=== PATIENT | female | born 1950 | race African-American/Black ===

== ENCOUNTER 2021-09-12 13:47 | Inpatient (IN) | payer MEDICARE, BC ==
[~2021-09-12] VITALS: Ht 170.2 cm; Wt 45.8 kg
[2021-09-12 14:44] LABS: BASOPHILS % (AUTO) 0.7 % (0.0-2.0); HEMATOCRIT 34 % (33-45); HEMOGLOBIN 11.4 g/dL (11.5-14.8); LYMPHOCYTES # (AUTO) 2.4 K/uL (0.8-4.8); LYMPHOCYTES % (AUTO) 33.3 % (20.0-44.0); MEAN CORPUSCULAR HGB CONC 34 g/dl (31.0-36.0); MEAN CORPUSCULAR VOLUME 85 fL (82-100); MONOCYTES # (AUTO) 1.6 K/uL (0.1-1.30); MONOCYTES % (AUTO) 22.2 % (2.0-12.0); NEUTROPHILS # (AUTO) 3.1 K/uL (1.8-8.9); NEUTROPHILS % (AUTO) 42.8 % (43.0-81.0); PLATELET COUNT (AUTO) 427 K/uL (150-450); RED BLOOD CELL COUNT(AUTO) 3.98 MIL/uL (4.0-5.2); WHITE BLOOD COUNT (AUTO) 7.2 K/uL (4.3-11.0)
[2021-09-12 14:51] LABS: CALCIUM, SERUM 9.1 mg/dL (8.5-10.1); CARBON DIOXIDE 30 mmol/L (21-32); CHLORIDE 99 mmol/L (98-107); CREATININE 0.4 mg/dL (0.6-1.3); GLUCOSE 100 mg/dL (74-106); POTASSIUM 4.2 mmol/L (3.5-5.1); SODIUM SERUM 137 mmol/L (136-145); UREA NITROGEN, BLOOD 6 mg/dL (7-18)
[2021-09-12] MEDS ORDERED: diphenhydrAMINE HCL 50 MG/ML VIAL IV ONE (15:30)
[2021-09-12] MEDS ORDERED: DIVA125C2 PO (15:41)
[2021-09-12] MEDS ORDERED: CEFD300C3 PO (16:07)
[2021-09-12] MEDS ORDERED: LEVE1000 PO (16:07)
[2021-09-12] MEDS ORDERED: AMLO5TAB4 PO (16:07)
[2021-09-12] MEDS ORDERED: ESCI10TA PO (16:07)
--- NOTE | 2021-09-12 16:58 | NUR ---
CALLED [facility]ORE[facility]. WILL CALL BACK.
--- NOTE | 2021-09-12 17:00 | NUR ---
(Dayna) at bedside. Updated with plan of care
[2021-09-12 17:19] LABS: BAND % (MANUAL) 2 % (0.0-5.0); EOSINOPHILS % (MANUAL) 5 % (0-4); LYMPHOCYTES % (MANUAL) 34 % (16-48); MONOCYTES % (MANUAL) 10 % (0-11.0); NEUTROPHILS % (MANUAL) 49 (42-76)
--- NOTE | 2021-09-12 17:32 | NUR ---
I/O cath done +cloudy UO- scant amt. Specimen sent to lab
--- NOTE | 2021-09-12 18:15 | NUR ---
NURSING SUP GAVE 307-1.
--- NOTE | 2021-09-12 18:29 | NUR ---
Nurse [employer] given to RNStefano Solano, No obvious distress?No acute changes. Status quo
[2021-09-12 19:11] VITALS: BP 127/63
--- NOTE | 2021-09-12 19:11 | NUR ---
ADMISSION 71 y/o female, able to response when asked but limited, appears weak and sleepy. Skin assessment done, left elbow skin tear with dry scab. Left sided weakness, CVA hx per records. Fall precaution maintained. at bedside, supportive with care.
[2021-09-12 20:01] LABS: BILIRUBIN,URINE SMALL (NEGATIVE); COLOR,URINE YELLOW (YELLOW); LEUKOCYTE ESTERASE ,URINE TRACE (NEGATIVE); NITRITE, URINE NEGATIVE (NEGATIVE); PROTEIN,URINE TRACE mg/dl (NEGATIVE); UGLUCOSE NEGATIVE (NEGATIVE); UROBILINOGEN,URINE 0.2 EU/dL (0.2)
[2021-09-12 22:14] LABS: BACTERIA,URINE RARE /HPF (None Seen)
[2021-09-12 22:15] LABS: WBC,URINE 0-2 /HPF (0-3); YEAST,URINE Few /HPF (None Seen)
--- NOTE | 2021-09-12 22:16 | NUR ---
LAB RESULT Urinalysis resulted, informed Dr. Loza with new order placed. Will start on IV Rocephin 1gm daily.
[2021-09-12] MEDS ORDERED: CEFTRIAXONE 1 G in IV D5W 50 ML IV ONE (22:30)
[2021-09-12] MEDS ORDERED: CEFTRIAXONE 1 G VIAL ONE (22:38)
[2021-09-13] VITALS: BP 121/65
[2021-09-13 04:00] VITALS: BP 107/63
--- NOTE | 2021-09-13 05:36 | NUR ---
END OF SHIFT REPORT Patient lethargic at times. On room air, tolerated well. Sinus rhythm in the Tele monitor HR 81. Started on IV abx. Afebrile during the shift. Urinary incontinence, no BM this this shift. Plan for Neurology consult, neuro checks. Fall precaution maintained, caregiver at bedside. Will endorse to oncoming RN.
--- NOTE | 2021-09-13 07:25 | NUR ---
RN OPENING NOTES RECEIVED PATIENT IN BED, RESTING. RESPONDS TO PHYSICAL AND VERBAL STIMULI, VERY LETHARGIC. CAREGIVER AT BEDSIDE. ON RA WITH NO S/SX OF RESP DISTRESS NOTED. NOT IN ACUTE DISTRESS AT THIS TIME. ON TELE MONITOR READING SR 78 AT THIS TIME. R HAND G#22 INTACT AND PATENT. PLAN TO HAVE NEURO CONSULT. SAFETY PRECAUTIONS IN PLACE. WILL CONTINUE PLAN OF CARE.
[2021-09-13] MEDS: ASPIRIN EC 81 MG TABLET.DR PO SCH (08:32)
[2021-09-13] MEDS: LEVETIRACETAM (250 MG) 250 MG TABLET PO SCH ×2 (08:32→17:35)
[2021-09-13] MEDS: ESCITALOPRAM OXALATE (10 MG) 10 MG TABLET PO SCH (08:32)
[2021-09-13] MEDS: AMLODIPINE BESYLATE 5 MG TABLET PO SCH (08:33)
--- NOTE | 2021-09-13 11:00 | NUR ---
RN NOTES PATIENT AWAKE AND MORE ALERT. A/O X1-2, ABLE TO CARRY ON CONVERSATION. AWAITING FOR NEURO EVAL. WILL CONTINUE TO MONITOR
[2021-09-13] MEDS: ACETAMINOPHEN 325 MG TABLET PO PRN (12:05)
--- NOTE | 2021-09-13 12:56 | NUR ---
SS Note: SS received consult for stroke. Pt. Is a 71-year-old female who demonstrates adequate insight to the reason for hospitalization. Per EMR, pt. was brought from home and was recent discharge from rehab facility. Pt. presents to the hospital stating that she was unable to wake up. Caregiver was at bedside. Pt. was oriented x3, alert, and cooperative. During interview, pt. was capable of following directions and appeared groomed. Pt.s speech was at a normal rate and pt.s mood was elevated. Pt. reported no hx of mental health, substance abuse, suicidal ideation, or homicidal ideation. Pt. denies auditory hallucinations, visual hallucinations, paranoia, or delusions. SW explored pt.s living situation. Per pt., she lives with her Raza [phone number: [phone], [address] [place] [address]], pt. was able to confirm address. Pt. stated that she has a hx of stroke and this time around she would not wake up, so her called the paramedics. Pt. was experiencing left-side numbness on her face. Pt. has 4 caregivers who rotates throughout the day to help with her ADLs. Pt. uses a walker and wheelchair to ambulate. Pt. also has a shower chair at home. Pt. was getting tearful and kept calling her . SW expressed emotional support. Plan: SW provided available resources and pt. accepted. Upon discharge, per pt., she wants to go back home with her [[id number] [place] [address]]. SW access pt. with the PHG9 and pt. scored a 0, pt. kept answering no to every question. There is no need for a psych consult. Resources Provided: Stroke Empowerment Packet. Educates pt.s on stroke.
--- NOTE | 2021-09-13 18:49 | NUR ---
RN CLOSING NOTES PATIENT IN BED, AWAKE, A/O X2-3. AND CAREGIVER AT BEDSIDE. REMAINS ON RA WITH NO S/SX OF RESP DISTRESS. NO COMPLAINT OF PAIN AT THIS TIME. ON TELE MONITOR READING SR [address] MORALEZ FOR NEURO EVAL. ALL ORDERS CARRIED OUT AND MEDICATIONS GIVEN. SAFETY PRECAUTIONS IN PLACE. WILL ENDORSE TO THE BELT KNIFE FEEDER NURSE FOR STUART
--- NOTE | 2021-09-13 19:35 | NUR ---
RN OPENING NOTE RECEIVED PATIENT IN BED, AWAKE, ALERT AND ORIENTED X2-3. CAREGIVER AT BEDSIDE. BREATHING IS EVEN AND NONLABORED. ON ROOM AIR, TOLERATING WELL. NO S/SX OF RESPIRATORY DISTRESS. DENIES ANY PAIN OR DISCOMFORT OF THIS TIME. ON TELEMETRY MONITORING WITH READING OF SINUS RHYTHM HR-76BPM. WITH IV ACCESS ON RIGHT FOREARM; PATENT, INTACT AND SALINE LOCKED. SAFETY AND FALL PRECAUTIONS IMPLEMENTED: HEAD OF BED ELEVATED, CALL LIGHT AND TABLE WITHIN EASY REACH, SIDE RAILS UP X2, BED IN LOWEST LOCKED POSITION. WILL CONTINUE TO MONITOR
[2021-09-13 20:00] VITALS: BP 104/61
[2021-09-13 20:22] VITALS: BP 104/61
[2021-09-13] MEDS ORDERED: CEFTRIAXONE 1 G in IV D5W 50 ML IV SCH (21:00)
--- NOTE | 2021-09-13 21:04 | NUR ---
RN NOTE PATIENT REQUESTED TO HAVE A SLEEPING PILL. ALFREDO BYRD NP NOTIFIED AND MADE AWARE; WITH ORDER MADE AND CARRIED OUT.
[2021-09-13] MEDS ORDERED: TRAZODONE 50 MG TABLET PO PRN (21:30)
--- NOTE | 2021-09-13 21:42 | NUR ---
RN NOTE PRN TRAZADONE 50 MG GIVEN PO ORDERED; MADE COMFORTABLE IN BED. WILL CONTINUE TO MONITOR
[2021-09-13 23:58] VITALS: BP_SYST 109; BP_SYST 162; BP_DIAS 63; BP_DIAS 74
[2021-09-14] VITALS (7 sets, daily range): BP systolic 105–131; BP diastolic 56–81
[2021-09-14 06:14] LABS: BASOPHILS % (AUTO) 0.5 % (0.0-2.0); EOSINOPHILS % (AUTO) 1.6 % (0.0-6.0); HEMATOCRIT 32 % (33-45); HEMOGLOBIN 10.9 g/dL (11.5-14.8); LYMPHOCYTES # (AUTO) 2.3 K/uL (0.8-4.8); MEAN CORPUSCULAR HGB CONC 34 g/dl (31.0-36.0); MEAN CORPUSCULAR VOLUME 86 fL (82-100); MONOCYTES # (AUTO) 1.3 K/uL (0.1-1.30); MONOCYTES % (AUTO) 21.4 % (2.0-12.0); NEUTROPHILS # (AUTO) 2.2 K/uL (1.8-8.9); NEUTROPHILS % (AUTO) 37.5 % (43.0-81.0); PLATELET COUNT (AUTO) 487 K/uL (150-450); RED BLOOD CELL COUNT(AUTO) 3.76 MIL/uL (4.0-5.2); WHITE BLOOD COUNT (AUTO) 5.9 K/uL (4.3-11.0)
[2021-09-14 06:37] LABS: CALCIUM, SERUM 9.1 mg/dL (8.5-10.1); CARBON DIOXIDE 28 mmol/L (21-32); CHLORIDE 100 mmol/L (98-107); CREATININE 0.4 mg/dL (0.6-1.3); GLUCOSE 100 mg/dL (74-106); MAGNESIUM 1.8 mg/dL (1.8-2.4); PHOSPHORUS 4.3 mg/dL (2.5-4.9); POTASSIUM 3.9 mmol/L (3.5-5.1); SODIUM SERUM 135 mmol/L (136-145); UREA NITROGEN, BLOOD 3 mg/dL (7-18)
--- NOTE | 2021-09-14 06:57 | NUR ---
RN CLOSING NOTE PATIENT RESTING IN BED, AWAKE, A/O X2-3. WITH CAREGIVER AT BEDSIDE. BREATHING EVENLY AND NONLABORED. STABLE ON ROOM AIR. IN NO ACUTE DISTRESS. NO COMPLAINTS OF PAIN OR DISCOMFORT AT THIS TIME. ON TELEMETRY MONITORING WITH READING OF SINUS RHYTHM HR-74BPM. WITH IV ACCESS ON RIGHT FOREARM; PATENT, INTACT AND SALINE LOCKED. SAFETY AND FALL PRECAUTIONS IN PLACE: HEAD OF BED ELEVATED, CALL LIGHT AND TABLE WITHIN EASY REACH, SIDE RAILS UP X2, BED IN LOWEST LOCKED POSITION. ENDORSED TO MORNING SHIFT FOR STUART.
--- NOTE | 2021-09-14 07:25 | NUR ---
MANAGER OF MARKETING OPENING NOTES RECEIVED PT IN BED ASLEEP, EASILY AROUSED. PT IS A/O X2, REORIENTED PT NEEDED. ON RA, TOLERATING WELL. BREATHING EVEN AND UNLABORED. NOT IN ANY SIGN OF DISTRESS. ON CARDIAC TELE MONITOR WITH CURRENT READING OF SINUS RHYTHM, HR 72. NO C/O CARDIAC DISTRESS VOICED AT THIS TIME. IV ACCESS IN RFA G #22 SALINE LOCK, INTACT, AND PATENT. SAFETY MEASURES IN PLACE: BED IN LOWEST AND LOCKED POSITION, SIDE RAILS UP X2, BED ALARM ON, AND CALL LIGHT WITHIN REACH. WILL CONTINUE TO MONITOR PT.
[2021-09-14] MEDS: ESCITALOPRAM OXALATE (10 MG) 10 MG TABLET PO SCH ×2 (09:00→09:23)
[2021-09-14] MEDS: ASPIRIN EC 81 MG TABLET.DR PO SCH ×2 (09:00→09:23)
[2021-09-14] MEDS: AMLODIPINE BESYLATE 5 MG TABLET PO SCH ×2 (09:00→09:22)
[2021-09-14] MEDS: LEVETIRACETAM (250 MG) 250 MG TABLET PO SCH ×3 (09:00→17:08)
--- NOTE | 2021-09-14 09:40 | NUR ---
RN NOTE PT REFUSED ALL MEDICATIONS DUE AT 0900. PT AGREED TO TAKE THE MEDICATIONS AT FIRST BUT WHEN MEDICATION WAS GIVEN TO PT, PT SPIT ALL THE MEDICATIONS OUT. EXPLAINED RISK AND BENEFITS STILL STRONGLY REFUSED.
--- NOTE | 2021-09-14 18:49 | NUR ---
BURN CREW MEMBER CLOSING NOTES PT IN BED AWAKE WITH DAUGHTER AT BEDSIDE. PT IS A/O X2 WITH EPISODES OF CONFUSION. REORIENTED PT NEEDED. ON RA, TOLERATING WELL. BREATHING EVEN AND UNLABORED. NOT IN ANY SIGN OF DISTRESS. ON CARDIAC TELE MONITOR WITH CURRENT READING OF SINUS RHYTHM, HR 89. NO C/O CARDIAC DISTRESS VOICED AT THIS TIME. IV ACCESS IN RFA G #22 SALINE LOCK, INTACT, AND PATENT. ALL NEEDS ATTENDED. KEPT CLEAN AND COMFORTABLE. SAFETY MEASURES IN PLACE: BED IN LOWEST AND LOCKED POSITION, SIDE RAILS UP X2, BED ALARM ON, AND CALL LIGHT WITHIN REACH. WILL ENDORSE TO CONTINUOUS PROCESS TANNER ROTARY DRUM NURSE FOR STUART.
--- NOTE | 2021-09-14 19:20 | NUR ---
EXECUTIVE COMPENSATION ANALYST OPENING NOTES:RECEIVED PATIENT IN BED, AWAKE, NO S/S OF DISTRESS NOTED. NO COMPLAIN OF PAIN. CALL LIGHT WITHIN REACH. BED ALARM ON. BED IN LOWEST AND LOCKED POSITION. HOB ELEVATED. WITH CAREGIVER AT THE BEDSIDE. ON TELE MONITOR WITH SR 99.
[2021-09-14] MEDS ORDERED: SULFAMETH/TRIMETH 800/160 MG 1 UDTAB TABLET PO SCH (21:00)
[2021-09-14] MEDS: CEFTRIAXONE 1 G in IV D5W 50 ML IV SCH (21:28)
[2021-09-15] MEDS ORDERED: ZOLPIDEM TARTRATE 5 MG TABLET PO PRN
[2021-09-15 06:57] LABS: BASOPHILS % (AUTO) 0.4 % (0.0-2.0); EOSINOPHILS % (AUTO) 2.3 % (0.0-6.0); HEMATOCRIT 31 % (33-45); HEMOGLOBIN 10.5 g/dL (11.5-14.8); LYMPHOCYTES # (AUTO) 2.6 K/uL (0.8-4.8); MEAN CORPUSCULAR HGB CONC 34 g/dl (31.0-36.0); MEAN CORPUSCULAR VOLUME 86 fL (82-100); MONOCYTES # (AUTO) 1.1 K/uL (0.1-1.30); MONOCYTES % (AUTO) 14.9 % (2.0-12.0); NEUTROPHILS # (AUTO) 3.5 K/uL (1.8-8.9); NEUTROPHILS % (AUTO) 47.4 % (43.0-81.0); PLATELET COUNT (AUTO) 549 K/uL (150-450); RED BLOOD CELL COUNT(AUTO) 3.62 MIL/uL (4.0-5.2); WHITE BLOOD COUNT (AUTO) 7.4 K/uL (4.3-11.0)
[2021-09-15 07:17] LABS: CALCIUM, SERUM 8.9 mg/dL (8.5-10.1); CARBON DIOXIDE 28 mmol/L (21-32); CHLORIDE 101 mmol/L (98-107); CREATININE 0.3 mg/dL (0.6-1.3); GLUCOSE 97 mg/dL (74-106); MAGNESIUM 1.8 mg/dL (1.8-2.4); PHOSPHORUS 4.1 mg/dL (2.5-4.9); POTASSIUM 3.8 mmol/L (3.5-5.1); SODIUM SERUM 135 mmol/L (136-145); UREA NITROGEN, BLOOD 2 mg/dL (7-18)
--- NOTE | 2021-09-15 07:30 | NUR ---
GRAPPLE SKIDDER OPERATOR OPENING NOTES RECEIVED PT IN BED ASLEEP, EASILY AROUSED WITH DAUGHTER AT BEDSIDE. PT IS A/O X2, REORIENTED PT NEEDED. ON RA, TOLERATING WELL. BREATHING EVEN AND UNLABORED. NOT IN ANY SIGN OF DISTRESS. ON CARDIAC TELE MONITOR WITH CURRENT READING OF SINUS RHYTHM, HR 69. NO C/O CARDIAC DISTRESS VOICED AT THIS TIME. IV ACCESS IN RFA G #22 SALINE LOCK, INTACT, AND PATENT. SAFETY MEASURES IN PLACE: BED IN LOWEST AND LOCKED POSITION, SIDE RAILS UP X2, BED ALARM ON, AND CALL LIGHT WITHIN REACH. WILL CONTINUE TO MONITOR PT.
[2021-09-15] MEDS: LEVETIRACETAM (250 MG) 250 MG TABLET PO SCH ×2 (09:41→16:12)
[2021-09-15] MEDS: AMLODIPINE BESYLATE 5 MG TABLET PO SCH (09:42)
[2021-09-15] MEDS: ESCITALOPRAM OXALATE (10 MG) 10 MG TABLET PO SCH (09:42)
[2021-09-15] MEDS: ASPIRIN EC 81 MG TABLET.DR PO SCH (09:42)
--- NOTE | 2021-09-15 13:51 | NUR ---
RN NOTE PT SEEN BY DR. LI WITH ORDERS OF HYDRALAZINE 10MG IV Q4HR PRN FOR SBP ABOVE 160.
[2021-09-15] MEDS ORDERED: hydrALAZINE HCL IV 20 MG VIAL IV PRN (14:00)
--- NOTE | 2021-09-15 18:40 | NUR ---
MS RN CLOSING NOTES PT IN BED AWAKE WITH AT BEDSIDE. PT IS A/O X2 WITH EPISODES OF CONFUSION. REORIENTED PT NEEDED. ON RA, TOLERATING WELL. BREATHING EVEN AND UNLABORED. NOT IN ANY SIGN OF DISTRESS. IV ACCESS IN RFA G #22 SALINE LOCK, INTACT, AND PATENT. ALL NEEDS ATTENDED. KEPT CLEAN AND COMFORTABLE. TURNED AND REPOSITIONED Q2HRS AND NEEDED. SAFETY MEASURES IN PLACE: BED IN LOWEST AND LOCKED POSITION, SIDE RAILS UP X2, BED ALARM ON, AND CALL LIGHT WITHIN REACH. WILL ENDORSE TO FERMENTATION OPERATOR NURSE FOR STUART.
--- NOTE | 2021-09-15 19:30 | NUR ---
MS RN OPENING NOTE RECEIVED PATIENT IN BED; AWAKE, ALERT AND ORIENTED X2. BREATHING IS EVEN AND UNLABORED. ON ROOM AIR, TOLERATING WELL. NOT IN ANY FORM OF RESPIRATORY DISTRESS. DENIES ANY PAIN OR DISCOMFORT OF THIS TIME. WITH IV ACCESS ON RIGHT FOREARM G#22; PATENT, INTACT AND SALINE LOCKED. WITH CAREGIVER @ BEDSIDE. SAFETY MEASURES IMPLEMENTED: CALL LIGHT AND TABLE WITHIN REACH, SIDE RAILS UP X2, BED IN LOWEST LOCKED POSITION. WILL CONTINUE TO MONITOR
[2021-09-15 20:00] VITALS: BP 106/63
[2021-09-15] MEDS: CEFTRIAXONE 1 G in IV D5W 50 ML IV SCH (21:00)
--- NOTE | 2021-09-15 21:15 | NUR ---
RN NOTES PATIENT SEEN WEARING DEPEND PULL UPS AND POISE INCONTINENCE PAD. SKIN ASSESSMENT DONE: REDNESS NOTED ON LEFT BUTTOCK. PICTURES TAKEN PLACED ON CHART. WOUND CARE CONSULT ORDERED. WILL CONTINUE TO MONITOR
--- NOTE | 2021-09-16 06:50 | NUR ---
MS RN CLOSING NOTE PATIENT RESTING IN BED; AWAKE, ALERT AND ORIENTED X2. BREATHING IS EVEN AND UNLABORED. ON ROOM AIR, TOLERATING WELL. NOT IN ANY FORM OF RESPIRATORY DISTRESS. DENIES ANY PAIN OR DISCOMFORT OF THIS TIME. WITH IV ACCESS ON RIGHT FOREARM G#22; PATENT, INTACT AND SALINE LOCKED. WITH CAREGIVER @ BEDSIDE. SAFETY MEASURES IN PLACE: CALL LIGHT AND TABLE WITHIN REACH, SIDE RAILS UP X2, BED IN LOWEST LOCKED POSITION. ENDORSED TO MORNING SHIFT FOR STUART.
[2021-09-16 08:00] VITALS: BP 131/77
--- NOTE | 2021-09-16 08:00 | NUR ---
RN OPENING NOTE PATIENT AWAKE IN BED RESTING. A/O X2. NO S/S OF PAIN NOTED AT THIS TIME. ON ROOM AIR, NO DISTRESS OR SHORTNESS OF BREATH NOTED. IV ACCESS RFA #22G, INTACT, PATENT AND FLUSHING WELL. FALL AND SAFETY MEASURES IN PLACE, BED ALARM ON, BED IN LOW AND LOCK POSITION, CALL LIGHT AND TABLE WITHIN EASY REACH, SIDE RAILS UP X2. WILL CONTINUE TO MONITOR.
[2021-09-16] MEDS: ESCITALOPRAM OXALATE (10 MG) 10 MG TABLET PO SCH (08:47)
[2021-09-16] MEDS: ASPIRIN EC 81 MG TABLET.DR PO SCH (08:47)
[2021-09-16 08:48] VITALS: BP 131/77
[2021-09-16] MEDS: LEVETIRACETAM (250 MG) 250 MG TABLET PO SCH (08:48)
[2021-09-16] MEDS: AMLODIPINE BESYLATE 5 MG TABLET PO SCH (08:48)
[2021-09-16] MEDS: ACETAMINOPHEN 325 MG TABLET PO PRN (11:24)
[2021-09-16] MEDS ORDERED: ASPI-1169 PO (13:52)
[2021-09-16] MEDS ORDERED: TRAZ-252 PO (13:52)
--- NOTE | 2021-09-16 16:24 | NUR ---
CAUSTIC PUMP OPERATOR NOTE PATIENT DISCHARGE IN STABLE CONDITION. A/O X2. V/S TAKEN, STABLE AND RECORDED. NO IV ACCESS. SKIN ASSESSMENT DONE, PICTURES TAKEN. NAME ARM BAND REMOVED. ALL BELONGING CHECKED AND SIGNED. HEALTH TEACHING AND DISCHARGE INSTRUCTIONS GIVEN TO PATIENT AND PATIENT'S AND VERBALIZED UNDERSTANDING. PATIENT LEFT UNIT VIA WHEELCHAIR WITH NO SIGNS OF DISTRESS, ACCOMPANIED BY THERMAL CUTTER HAND TO THE LOBBY. WHILE THERMAL CUTTER HAND WAS HELPING AND CAREGIVER TO TRANSFER PATIENT TO THE CAR, NOTICED A SKIN TEAR WITH MINOR BLEEDING, THERMAL CUTTER HAND OFFERED MR. MOY TO TAKE PATIENT BACK TO NURSE TO GET WOUND CARE, BUT HE REFUSED AND WIPED THE PATIENT SKIN TEAR WITH A [place] AND SAID HE WILL TAKE CARE OF IT AT HOME AND STATED THAT IT PROBABLY HAPPENED WHEN HE WAS TRANSFERRING THE PATIENT. CHARGE NURSE AWARE OF DISCHARGE.
== END 2021-09-16 15:40 | disposition home health service (06) | DRG 689 ==
LOC: ER 13:51 → MED 18:30 → TELE 22:44 → MED 09-15 13:53
PROVIDERS: ADMIT Student in an Organized Health Care Education/Training Program; ATTEND Student in an Organized Health Care Education/Training Program
DX: N39.0 Urinary tract infection, site not specified (principal); G93.41 Metabolic encephalopathy; I69.354 Hemiplegia and hemiparesis following cerebral infarction affecting left non-dominant side; E87.1 Hypo-osmolality and hyponatremia; I10 Essential (primary) hypertension; D64.9 Anemia, unspecified; Z20.822 Contact with and (suspected) exposure to COVID-19; Z79.899 Other long term (current) drug therapy; D63.8 Anemia in other chronic diseases classified elsewhere; Z87.891 Personal history of nicotine dependence
CPT/HCPCS: 36415; 70450-TC; 71045-TC; 80048-TC; 81001; 82533; 83735-TC; 84100-TC; 84443-TC; 84484-TC; 85025-TC; 87081-TC; 87086-TC; 97110-TC; 97112-TC; 97530-TC; C9803; G0378; J0696; J7050; J7060